=== PATIENT | male | born 1980 ===

== ENCOUNTER 2021-12-18 11:00 | Inpatient (IN) | payer MEDICARE ==
[2021-12-18] MEDS ORDERED: HALOPERIDOL LACTATE 5 MG/ML 1 ML VIAL IM PRN (11:09)
[2021-12-18] MEDS ORDERED: ACETAMINOPHEN TAB 325 MG TAB PO PRN (11:09)
[2021-12-18] MEDS ORDERED: MAG HYDROX/AL HYDROX/SIMETH 30 ML CUP PO PRN (11:09)
[2021-12-18] MEDS ORDERED: LORazepam 2 MG/ML INJ IM PRN (11:09)
[2021-12-18] MEDS ORDERED: MAGNESIUM HYDROXIDE 2,400 MG/10 ML CUP PO PRN (11:09)
[2021-12-18] MEDS ORDERED: haloperidoL 5 MG TAB PO PRN (11:09)
--- NOTE | 2021-12-19 02:18 | P.PN ---
Progress Note - Text Progress Note Date: 12/18/21 patient would not talk or answer any questions could not be evaluated at this time
[2021-12-19 10:29] LABS: ALT 19 U/L (4-49); AST 21 U/L (17-59); Albumin 3.9 g/dL (3.5-5.0); Alkaline Phosphatase 67 U/L (38-126); Bilirubin, Delta 0.1 mg/dL (0.0-0.2); Bilirubin,Unconjugated 0.6 mg/dL (0.0-1.1); Total Bilirubin 0.7 mg/dL (0.2-1.3)
--- NOTE | 2021-12-19 11:32 | P.HP ---
Psychiatric H&P - . H&P Date: 12/19/21 History & Physical: Allergies Allergy/AdvReac Type Severity Reaction Status Date / Time No Known Allergies Allergy Verified 12/18/21 11:08 Intake & Output 12/18/21 12/19/21 12/19/21 18:59 06:59 18:59 Weight 132 kg Laboratory Last Values Total Bilirubin 0.7 mg/dL (0.2-1.3) 12/19/21 09:47 Conjugated Bilirubin 0.0 mg/dL (0.0-0.3) 12/19/21 09:47 Unconjugated Bilirubin 0.6 mg/dL (0.0-1.1) 12/19/21 09:47 Delta Bilirubin 0.1 mg/dL (0.0-0.2) 12/19/21 09:47 AST 21 U/L (17-59) 12/19/21 09:47 ALT 19 U/L (4-49) 12/19/21 09:47 Alkaline Phosphatase 67 U/L (38-126) 12/19/21 09:47 Total Protein 7.0 g/dL (6.3-8.2) 12/19/21 09:47 Albumin 3.9 g/dL (3.5-5.0) 12/19/21 09:47 TSH 1.080 mIU/L (0.465-4.680) 12/19/21 09:47 12/19/21 11:32 IDENTIFYING DATA: Patient is a 41-year-old -Citizen Of [place] male who presented from [facility] on on 12/19/2021, under petition clinical certificate for bizarre behavior, psychosis, and nonadherence to treatment. HPI: Patient presented to the hospital on 12/19/2021, brought into the hospital transferred from [facility] for bizarre behavior and psychosis. The patient was subsequently admitted to the psychiatric unit. On presentation on the psychiatric unit, the patient is intermittent and cooperative with psychiatric assessments. He remains minimal and conversation and appears to be grossly disorganized and responding to internal stimuli. The patient only reports this provider that he wishes to be addressed as Mr. Hodgson. He is unable to recall events leading up to this hospitalization. When asked if there was anyone that we can speak to, the patient reports that he only wants to keep this between himself and this provider. When asked if he has been on any other medications, the patient does not answer. He then terminates the interview.. PAST PSYCHIATRIC HISTORY: Unable to determine any psychiatric history. Unable to determine. Psychiatric hospitalizations. Unable to determine any prior attempts at suicide. PMH: No reported medical history as per patient. There appears to be a surgical scar around his left knee. ALLERGIES: NO KNOWN DRUG ALLERGIES CHEMICAL DEPENDENCY HISTORY: Patient reports that he uses marijuana. He denies any other drug use at this time. He denies any heavy alcohol use. FAMILY PSYCHIATRIC/SUBSTANCE USE HISTORY: Unable to assess. SOCIAL HISTORY: The patient does confirm that he has a daughter and a sibling with the last name rich and listed in the patient's chart however the patient n ot wish to bulging other information aside from that. MENTAL STATUS EXAM: General Appearance: Patient appears to be stated age is alert, directable, and attempts to cooperate. Patient appears to have disheveled hygiene and grooming. Behavior: Patient is seated without any agitated behavior. Eye contact is intense. Speech: Patient's speech is minimal, short, and raymundo. Mood/Affect: Patient reports their mood is "fine," affect is bizarre with a blunted range. Suicidality/Homicidality: Patient refuses to answer. Perceptions: Patient refuses to answer. Though content/process: The patient appears to grossly disorganized with some thought blocking. Memory and concentration: Unable to assess at this time. Patient refuses to answer. Judgment and insight: Very poor. STRENGTHS/WEAKNESSES: Unable to identify patient's strengths at this time. Weakness is that the patient seems to have very poor insight and is severely mentally ill. INTELLECT: Unable to properly assess. IMPRESSIONS: Schizophrenia Cannabis use disorder PLAN: -Patient is admitted under involuntary status to MHU for stabilization of psychiatric symptoms and safety. A second certification was completed and along with petition will be filed for court. -Medications : Will start patient on Haldol 3 mg by mouth twice a day for schizophrenia -Ativan and Haldol PRN for agitation/aggression -Patient was informed of the risks, benefits and side effects of the medication however does not engage in the consent discussion. -Internal Medicine consult to perform medical evaluation and physical. -NRT - nicotine patch -SW on board for discharge planning. Encourage patient to participate in groups to work on coping skills. 12/19/21 11:32
[2021-12-19 16:24] LABS: Chol/HDL Ratio 5.89 Ratio; LDL Cholesterol,Calculated 101.1 mg/dL (0.0-131.0); VLDL Calculation 19.34 mg/dL (5.00-40.00)
[2021-12-19] MEDS ORDERED: OLANZapine 5 MG TAB PO SCH (21:00)
[2021-12-19] MEDS: haloperidoL 1 MG TAB PO SCH (21:53)
[2021-12-20] MEDS: LORazepam 1 MG TAB PO PRN ×2 (01:48→09:47)
[2021-12-20] MEDS: haloperidoL 1 MG TAB PO SCH (09:47)
--- NOTE | 2021-12-20 18:03 | P.PN ---
Progress Note - Text Progress Note Date: 12/20/21 Interval History: Patient refused requests for assessment multiple times today. I went to his room to evaluate him with nurse present. Patient was found resting in bed, appears to be attending to internal stimuli. He is irritable and dismissive on assessment. When asked why he is refusing treatment he states "did you pay me?" and abruptly leaves his room and refuses to engage in assessment, appears to talk to himself as he walks away. He refused his Haldol 3 mg last night but did take his Haldol 3 mg this morning. Per staff, he has been refusing groups, refusing deferral, is malodorous and mostly isolates to his room. Mental Status Exam: General Appearance: Patient appears to be stated age is alert, is obese and disheveled, dressed in hospital gown and pants falling down. Orientation: He is alert and oriented to person (not able to assess place, time, situation due to lack of cooperation). Behavior: Patient is laying in bed without agitated behavior, has been isolating to his room and refusing treatment. He abruptly leaves the room. Speech: Patient's speech is fluent and non-pressured. Mood/Affect: Mood is irritable, affect is congruent and constricted. Suicidality/Homicidality: Not able to assess due to lack of cooperation. Perceptions: Not able to fully assess due to lack of cooperation, but he does appear to be attending to internal stimuli. Though content/process: Not able to fully assess due to lack of cooperation. Memory and concentration: Not able to fully assess due to lack of cooperation. Judgment and insight: Poor Assessment: Schizophrenia Cannabis use disorder Plan: -Patient is admitted under involuntary status to MHU for stabilization of psychiatric symptoms and safety. A second certification was completed and along with petition was filed for court. Patient refused deferral and will await court date. -Medications: Increase Haldol to 5 mg by mouth twice a day for schizophrenia. -Ativan and Haldol PRN for agitation/aggression -NRT - nicotine patch -SW on board for discharge planning. Encourage patient to participate in groups to work on coping skills. Waiting on court date.
[2021-12-20] MEDS: haloperidoL 5 MG TAB PO SCH (20:36)
[2021-12-21] MEDS: haloperidoL 5 MG TAB PO SCH ×2 (10:30→20:11)
--- NOTE | 2021-12-21 16:43 | P.PN ---
Progress Note - Text Progress Note Date: 12/21/21 Interval History: Patient was found laying in his bed, continues to isolate to his room. I evaluated patient in his room with staff member present. Patient was found resting in bed, looking up at the ceiling, appears to be attending to internal stimuli. He is passively engaged with an irritable edge and somewhat dismissive on assessment. He took his Haldol 5 mg po last night and this morning, and he does not appear to be having any side effects. Per staff, he has been eating meals but has not been attending groups. Mental Status Exam: General Appearance: Patient appears to be stated age is alert, is obese and disheveled, dressed casual attire. Orientation: He is alert and oriented to person (not able to assess place, time, situation due to lack of cooperation). Behavior: Patient is laying in bed without agitated behavior, laying down and looking up at the ceiling, has been isolating to his room. Speech: Patient's speech is fluent and non-pressured. Mood/Affect: Mood is irritable, affect is blunted. Suicidality/Homicidality: Not able to assess due to lack of cooperation. Perceptions: Not able to fully assess due to lack of cooperation, but he does appear to be attending to internal stimuli. Though content/process: Not able to fully assess due to lack of cooperation. There is evidence of poverty of thought. Memory and concentration: Not able to fully assess due to lack of cooperation. Judgment and insight: Poor Assessment: Schizophrenia Cannabis use disorder Plan: -Patient is admitted under involuntary status to [facility] for stabilization of psychiatric symptoms and safety. A second certification was completed and along with petition was filed for court. Patient refused deferral and will await court date. -Medications: Increase Haldol to 10 mg by mouth twice a day for schizophrenia. -Ativan and Haldol PRN for agitation/aggression -NRT - nicotine patch -SW on board for discharge planning. Encourage patient to participate in groups to work on coping skills. Waiting on court date.
[2021-12-22] MEDS: haloperidoL 5 MG TAB PO SCH ×3 (08:58→20:24)
--- NOTE | 2021-12-22 16:00 | P.PN ---
Progress Note - Text Progress Note Date: 12/22/21 Interval History: Patient was found laying in his bed, but is slightly more interactive on assessment today. I evaluated patient in his room with nurse present. His mood appears to be improving and he is less irritable on assessment today. He has been compliant with his Haldol 10 mg last night and this morning, and he denies side effects. He reports good appetite and good sleep, he reports his mood is "pretty well". He continues to attend to internal stimuli and displays thought blocking, but this appears to be slightly improving in intensity. He reports auditory hallucinations and when asked to elaborate he states "not directly at me". He talks about something jumping in and out of bed, and it is not clear if he is talking about himself or if he is having visual halllucinations. He also states his teeth are aggrevating him, but is not able to elaborate when asked. No abnormal movements observed on assessment. He denies SI/HI. He is slightly less isolative, has been walking in the hallways. He has not been showering, has poor hygiene and is malodorous. Mental Status Exam: General Appearance: Patient appears to be stated age, disheveled, malodorous, dressed in hospital gown. Orientation: He is alert and oriented to person (not able to assess place, time, situation due to thought blocking). Behavior: Patient is laying in bed without agitated behavior, laying down and looking up at the ceiling, has been isolating to his room. Speech: Patient's speech is fluent and non-pressured. Mood/Affect: Mood is irritable, affect is blunted. Suicidality/Homicidality: Not able to assess due to lack of cooperation. Perceptions: Not able to fully assess due to lack of cooperation, but he does appear to be attending to internal stimuli. Though content/process: Not able to fully assess due to lack of cooperation. There is evidence of poverty of thought. Memory and concentration: Not able to fully assess due to lack of cooperation. Judgment and insight: Poor Assessment: Schizophrenia Cannabis use disorder Plan: -Patient is admitted under involuntary status to MHU for stabilization of psychiatric symptoms and safety. A second certification was completed and along with petition was filed for court. Patient refused deferral and will await court date. -Medications: Increase Haldol to 10 mg by mouth TID for schizophrenia. Add Cogentin 1 mg BID for EPS prophylaxis. -Ativan and Haldol PRN for agitation/aggression -NRT - nicotine patch -SW on board for discharge planning. Encourage patient to participate in groups to work on coping skills. Waiting on court date.
[2021-12-22] MEDS: BENZTROPINE MESYLATE 1 MG TAB PO SCH ×2 (16:54→20:24)
[2021-12-23] MEDS: haloperidoL 5 MG TAB PO SCH ×3 (08:20→21:45)
[2021-12-23] MEDS: BENZTROPINE MESYLATE 1 MG TAB PO SCH ×2 (08:20→21:45)
--- NOTE | 2021-12-23 14:02 | P.PN ---
Progress Note - Text Progress Note Date: 12/23/21 Interval History: Patient was found laying in his bed, and stands up for assessment with me with nurse present. His concentration and mood are improving. He is not irritable and does not become agitated on assessment today. No reports of agitation and no PRNs required yesterday or today. There is still evidence of attending to internal stimuli and poverty of thought. He is oriented to person, and incorrectly states the day is "'s " and the year is "2019". He a nswers most questions today by shaking his head, and when asked more open-ended questions, his thought process is still disorganized and difficult to understand at times. He denies auditory hallucinations but objectively appears to be attending to internal stimuli. He has been compliant with his medications, and he denies side effects. No abnormal movements observed on assessment. He reports good mood, good sleep, good appetite. He denies SI/HI. He has showered today. Mental Status Exam: General Appearance: Patient appears to be stated age, obese, dressed in sweats, marginal hygiene. Orientation: He is alert and oriented to person (incorrectly states the time is 's Day 2019). Behavior: Patient is laying in bed without agitated behavior, stands up to participate in assessment. Speech: Patient's speech is mumbled and difficult to understand at times. Mood/Affect: Mood is improved, affect is blunted. Suicidality/Homicidality: He denies suicidal or homicidal ideations, plan or intent. Perceptions: He denies auditory or visual hallucinations but he appears to be attending to internal stimuli. Though content: Poverty of thought. Thought process: Still somewhat disorganized. Memory and concentration: Improving. Judgment and insight: Slightly improving. Assessment: Schizophrenia Cannabis use disorder Plan: -Patient is admitted under involuntary status to [facility] for stabilization of psychiatric symptoms and safety. A second certification was completed and along with petition was filed for court. Patient refused deferral and will await court date. -Medications: Increase Haldol to 15 mg daily in the morning, 10 mg daily in the afternoon, and 15 mg QHS, for schizophrenia. Monitor for EPS and QTc prolongation. Continue Cogentin 1 mg BID for EPS prophylaxis. -Ativan and Haldol PRN for agitation/aggression -NRT - nicotine patch -SW on board for discharge planning. Encourage patient to participate in groups to work on coping skills. Waiting on court date.
[2021-12-23] MEDS ORDERED: haloperidoL 5 MG TAB PO SCH (21:00)
[2021-12-24] MEDS: haloperidoL 5 MG TAB PO SCH ×3 (09:19→21:13)
[2021-12-24] MEDS: BENZTROPINE MESYLATE 1 MG TAB PO SCH ×2 (09:19→21:13)
--- NOTE | 2021-12-24 12:01 | P.PN ---
Progress Note - Text Progress Note Date: 12/24/21 Interval History: Patient was seen wandering the hallways and was directable and agreeable to speak with program writer in the office. The patient continues to be grossly disorganized however is not reporting any overt auditory or visual hallucinations at this time. He continues to be . At t mostly nonsensical but has been redirectable. He is able to acknowledge that he is scheduled for court on 12/26/2021 and was able to ask if he was to be present at the courthouse or if he would be present here. He has been in adherent with his medications and is not reporting any significant side effects at this time. He reports no chest pain, shortness of breath, lightheadedness, or other issues. Mental Status Exam: General Appearance: Patient appears to be stated age, is obese, dressed in home close, with marginal hygiene. Behavior: Patient is seated upright without any agitated behavior. He attempts to participate in the psychiatric interview. Psychomotor activity appears normal. Eye contact is appropriate. Speech: Patient's speech is difficult to follow, nonsensical, spontaneous, hyperverbal if given the opportunity. Mood/Affect: Mood is "alright," affect is bizarre and blunted. Suicidality/Homicidality: Patient denies any suicidal or homicidal ideation, intention, and/or plan. Perceptions: Patient denies any overt auditory or visual hallucinations however appears to respond to internal stimuli. Though content/process: Poverty of thought Memory and concentration: The patient is not alert and oriented except to person. At baseline appears to be poor. Judgment and insight: Poor Assessment Schizophrenia Cannabis use disorder Plan: -Patient continues to meet criteria for inpatient psychiatric admission for symptom stabilization and safety. Patient is scheduled for court on 12/26/2021. -Medications: Continue Haldol 15 mg by mouth every morning, 10 mg in the afternoon, and 50 mg by mouth daily at bedtime for schizophrenia. We will consider the administration of Haldol decanoate prior to discharge. Continue Cogentin 1 mg by mouth twice a day for EPS prophylaxis -When necessary Ativan and Haldol for agitation/aggression. -NRT - nicotine patch -SW on board for discharge planning. Encouraged the patient to participate in milieu.
[2021-12-25] MEDS: haloperidoL 5 MG TAB PO SCH ×3 (08:58→13:44)
[2021-12-25] MEDS: BENZTROPINE MESYLATE 1 MG TAB PO SCH ×2 (08:59→21:00)
[2021-12-25] MEDS ORDERED: HALOPERIDOL DECANOATE 50 MG/ML 1 ML VIAL IM SCH (10:00)
--- NOTE | 2021-12-25 10:18 | P.PN ---
Progress Note - Text Progress Note Date: 12/25/21 Interval History: Patient was seen wandering the hallways and was directable and agreeable to speak with writer editor in the office. The patient is much more spontaneous and able to answer questions properly today. Currently, the patient is not reporting any suicidal or homicidal ideation, intention, and/or plan. He is not reporting any auditory or visual hallucinations and denies any paranoia or other delusions. The patient has been adherent with his medications and is not endorsing any significant side effects at this time. He is currently alert and oriented to person and time only. He was unable to identify the name of this hospital or what city this hospitalization. He was able to identify that he has been living in [place]. He does acknowledge that he is scheduled for court tomorrow for mental health treatment. He is agreeable to receiving the long- acting injectable of Haldol decanoate today. Mental Status Exam: General Appearance: Patient appears to be stated age, is obese, dressed in home close, with marginal hygiene. Behavior: Patient is seated upright without any agitated behavior. He attempts to participate in the psychiatric interview. Psychomotor activity appears normal. Eye contact is appropriate. Speech: Patient's speech is much more coherent and spontaneous today. Mood/Affect: Mood is "doing okay." Affect is blunted. Suicidality/Homicidality: Patient denies any suicidal or homicidal ideation, intention, and/or plan. Perceptions: Patient denies any auditory or visual hallucinations. Though content/process: Poverty of thought but more linear and logical in conversation today. Memory and concentration: The patient is alert and oriented to person and time. Judgment and insight: Mildly improving Vital Signs Temp 97.6 F 12/25/21 06:39 Pulse 54 L 12/25/21 06:39 Resp 14 12/25/21 06:39 BP 113/60 12/25/21 06:39 Pulse Ox FiO2 Assessment Schizophrenia Cannabis use disorder Plan: -Patient continues to meet criteria for inpatient psychiatric admission for symptom stabilization and safety. Patient is scheduled for court on 12/26/2021. -Medications: Decrease Haldol to 10 mg in the morning. We'll administer Haldol Decanoate 50 mg IM today in anticipation for discharge after court. Continue Cogentin 1 mg by mouth twice a day for EPS prophylaxis -When necessary Ativan and Haldol for agitation/aggression. -NRT - nicotine patch -SW on board for discharge planning. Encouraged the patient to participate in milieu.
[2021-12-26 07:07] VITALS: BP 118/58; PULSE 51; RESP 16; TEMP 97.9
[2021-12-26] MEDS: BENZTROPINE MESYLATE 1 MG TAB PO SCH (08:55)
[2021-12-26] MEDS: haloperidoL 5 MG TAB PO SCH (11:22)
--- NOTE | 2021-12-26 13:19 | P.DS ---
Providers Date of admission: 12/18/21 22:40 Expected date of discharge: 12/26/21 Attending physician: Bernardo Estes MD Consults: 12/18/21 11:09 Consult Physician Routine Consulting Provider: Cesar Jack Consult Reason/Comments: H & P Do you want consulting provider notified?: Yes, Notify in am Primary care physician: Stated None - Discharge Diagnosis(es) (1) Schizophrenia Current Visit: Yes Status: Acute Priority: High (2) Cannabis use disorder Current Visit: Yes Status: Chronic Priority: Medium Hospital Course: Admission HPI: Patient is a 41-year-old -Algerian male who presented from [facility] on on 12/19/2021, under petition clinical certificate for bizarre behavior, psychosis, and nonadherence to treatment. Patient presented to the hospital on 12/19/2021, brought into the hospital transferred from [facility] for bizarre behavior and psychosis. The patient was subsequently admitted to the psychiatric unit. On presentation on the psychiatric unit, the patient is intermittent and cooperative with psychiatric assessments. He remains minimal and conversation and appears to be grossly disorganized and responding to internal stimuli. The patient only reports this provider that he wishes to be addressed as Mr. Hodgson. He is unable to recall events leading up to this hospitalization. When asked if there was anyone that we can speak to, the patient reports that he only wants to keep this between himself and this provider. When asked if he has been on any other medications, the patient does not answer. He then terminates the interview.. Unable to determine any psychiatric history. Unable to determine. Psychiatric hospitalizations. Unable to determine any prior attempts at suicide. Hospital course: Upon admission to the unit patient was initially grossly disorganized, nonsensical, and appeared to be responding to internal stimuli. He was initially nonadherent with treatment however began taking medications on his own volition. Patient got along well with other patients on the unit and followed unit protocol. Patient was compliant with the medications and denied any side effects throughout hospital course. Patient was started on Haldol for schizophrenia. The patient's Haldol was eventually titrated and the patient was transitioned to home health decanoate. On this regimen of Haldol, the patient despite significant improvement in regards to his gross disorganization and psychotic symptoms. He became much more calm and cooperative and was directable and able to participate in the psychiatric interview in a linear and logical fashion. On the day of discharge, the patient is not reporting any suicidal or homicidal ideation, intention, and/or plan. The patient is not reporting any auditory or visual hallucinations. The patient is not reporting any paranoia or other delusions. He has been in adherent with his medication and is in agreement to continue following up for his outpatient appointments to receive his Haldol Decanoate. He denies any access to firearms other weapons. He became more alert and oriented as the hospitalization progressed. The patient was counseled in length on importance of medication adherence appropriate outpatient follow-up. Patient does have significant history of cannabis abuse and was consequently great length on abstaining from all substances including alcohol and marijuana. Prior to discharge, family meeting will be arranged by criminal justice social worker to answer questions and ensure safety. The patient was court ordered for mental health treatment as the patient was initially petition and certified. The patient denied any health issues or concerns on the day of discharge. He reported no chest pain, shortness of breath, or lightheadedness. Mental status exam: General Appearance: Patient appears to be stated age is alert, pleasant, and cooperative. Patient is in no acute distress and has fair hygiene and grooming Behavior: Patient is calmly seated without any agitated behavior. Speech: Patient's speech is fluent and nonpressured. Mood/Affect: Patient reports their mood is "been pretty good", affect is constricted however euthymic. Suicidality/Homicidality: Patient denies having any suicidal or homicidal ideation intent or plan. Perceptions: Patient denies any auditory or visual hallucinations. Though content/process: There is no evidence of any delusional thought content and thought process is linear and goal-directed. Memory and concentration: AOX3, grossly intact for the purposes of this session. Can spell "WORLD" backwards correctly. Judgment and insight: Improved with guarded prognosis Vital Signs Temp 97.9 F 12/26/21 07:06 Pulse 51 L 12/26/21 07:06 Resp 16 12/26/21 07:06 BP 118/58 12/26/21 07:06 Pulse Ox 99 12/26/21 07:06 FiO2 Laboratory Results Estimated Ave Glu mg/dL 107 12/19/21 09:47 Hemoglobin A1c 5.4 % (0.0-6.0) 12/19/21 09:47 Total Bilirubin 0.7 mg/dL (0.2-1.3) 12/19/21 09:47 Conjugated Bilirubin 0.0 mg/dL (0.0-0.3) 12/19/21 09:47 Unconjugated Bilirubin 0.6 mg/dL (0.0-1.1) 12/19/21 09:47 Delta Bilirubin 0.1 mg/dL (0.0-0.2) 12/19/21 09:47 AST 21 U/L (17-59) 12/19/21 09:47 ALT 19 U/L (4-49) 12/19/21 09:47 Alkaline Phosphatase 67 U/L (38-126) 12/19/21 09:47 Total Protein 7.0 g/dL (6.3-8.2) 12/19/21 09:47 Albumin 3.9 g/dL (3.5-5.0) 12/19/21 09:47 Triglycerides 96.70 mg/dL (0.00-149.00) 12/19/21 09:47 Cholesterol 145.00 mg/dL (0.00-200.00) 12/19/21 09:47 LDL Cholesterol, Calc 101.1 mg/dL (0.0-131.0) 12/19/21 09:47 VLDL Cholesterol, Calc 19.34 mg/dL (5.00-40.00) 12/19/21 09:47 HDL Cholesterol 24.60 mg/dL (40.00-60.00) L 12/19/21 09:47 Cholesterol/HDL Ratio 5.89 Ratio 12/19/21 09:47 TSH 1.080 mIU/L (0.465-4.680) 12/19/21 09:47 Allergies Allergy/AdvReac Type Severity Reaction Status Date / Time No Known Allergies Allergy Verified 12/21/21 20:29 Impression: Schizophrenia Cannabis use disorder Plan: -Continue with discharge today as patient has improved and stabilized psychiatrically and is not currently an imminent threat to himself and/or others. Patient will remain at chronically elevated risk for harm to self and/or others due to the severity of his mental illness. -Continue medications: Haldol Decanoate 50 mg IM was administered on 12/25/2021. Next dose due on 0 01/22/2022. Cogentin 1 mg by mouth twice a day for EPS side effects -Patient was counseled on the need for medication compliance and appropriate follow-up at mental health and also primary care for medical issues. Patient verbalized understanding and agreed. -Social work to arrange for and conduct family meeting to ensure safety upon discharge and answer any questions/concerns. Social work also to arrange for patients follow up appointments with [facility] for psychiatric care along with follow up with primary care provider. -Patient counseled on abstaining from recreational drugs and marijuana and alcohol. Was informed/educated on the adverse effects on their physical and mental health. Patient verbally agreed and understood. -Patient was instructed to return to the hospital or seek immediate medical care if their psychiatric or medical symptoms do worsen or reoccur. -Psychoeducation and supportive therapy provided to patient. Risks and benefits of pharmacological treatment versus the risks and benefits of nontreatment weight and discussed. Informed consent discussion held. Common side effects of psychotropics discussed such as, but not limited to headache, GI disturbance, sexual dysfunction, movement disorders, sedation, and orthostatic hypotension. Life threatening and blackbox warnings of prescribed medications also discussed. Potential risks of operating a vehicle or heavy machinery discussed with patient at length. Advised on importance of compliance and a reliable and responsible manner. Patient advised to review FDA consumer labeling of all medications prior to taking. Patient verbalized understanding of potential risks, and agrees with current treatment plan. Patient advised to medically contact physician/emergency personnel if any acute changes in condition occur. Patient Condition at Discharge: Stable Plan - Discharge Summary Discharge Rx Participant: No New Discharge Prescriptions: New Benztropine Mesylate [Cogentin] 1 mg PO BID 30 Days tab Haloperidol Decanoate [Haldol D] 50 mg IM QMONTHLY #1 each Discharge Medication List Benztropine Mesylate [Cogentin] 1 mg PO BID 30 Days tab 12/26/21 [Rx] Haloperidol Decanoate [Haldol D] 50 mg IM QMONTHLY #1 each 12/26/21 [Rx] Follow up Appointment(s)/Referral(s): [facility]Other] - 1 Week Lucas GALOSan Jose) [Other] - 01/01/22 12:00 pm (With Andree via telehealth ([facility] will call pt)) Patient Instructions/Handouts: How to Stop Smoking (ED), Schizophrenia (DC) Activity/Diet/Wound Care/Special Instructions: Avoid the use of street drugs and alcohol. Take all prescriptions as prescribed. When you are in need of refills on your medications, please contact your medical provider and/or outpatient psychiatrist to have this done. Please go to scheduled outpatient appointment for aftercare treatment. If symptoms return or become worse, call the crisis line at and/or go to the nearest emergency room for evaluation. Discharge Disposition: HOME SELF-CARE
== END 2021-12-26 13:13 | disposition home or self-care (01) | DRG 885 ==
LOC: 3MHU 22:40
PROVIDERS: ADMIT Psychiatry & Neurology Psychiatry; ATTEND Psychiatry & Neurology Psychiatry
DX: F20.9 Schizophrenia, unspecified (principal); F12.90 Cannabis use, unspecified, uncomplicated
CPT/HCPCS: 80061; 80076; 83036; 84443